=== PATIENT | male | born 1980 | race African-American/Black ===

== ENCOUNTER 2017-03-31 19:28 | Emergency (ER) | payer OTHER ==
[2017-03-31 20:10] LABS: #Basophils 0.1 thou/uL (0.0-0.2); #Eosinphils 0.1 thou/uL (0.0-0.7); #Lymphocytes 5.2 thou/uL (1.20-3.40); #Monocytes 0.7 thou/uL (0.11-0.59); %Basophils 0.6 % (0.0-1.0); %Eosinophils 0.8 % (0.0-10.0); %Lymphocytes 34.6 % (21.0-51.0); %Monocytes 4.7 % (0.0-10.0); Hematocrit 43.4 % (42.0-52.0); Mean Platelet Volume 6.7 fL (7.4-10.4); Red Blood Cell (RBC) Count 5.42 mill/uL (4.70-6.10); White Blood Cell (WBC) Count 15.2 thou/uL (4.8-10.8)
[2017-03-31] MEDS ORDERED: Ketorolac Tromethamine 30 MG/ML VIAL ONE (20:22)
--- NOTE | 2017-03-31 20:26 | RAD ---
PORTABLE AP CHEST X-RAY: 03/31/17 HISTORY: Chest pain. COMPARISON: 12/15/13 The cardiac silhouette is magnified by projection. Pulmonary vasculature is within normal limits. Th e lungs are clear. There has been no interval change when compared to the prior study. IMPRESSION: No acute cardiopulmonary process. POS: [facility]
[2017-03-31 20:27] LABS: Troponin I Less than 0.010 ng/mL (< 0.028)
[2017-03-31 20:29] LABS: ALT (SGPT) 29 U/L (8-55); AST (SGOT) 27 U/L (5-34); Alkaline Phosphatase 61 U/L (40-150); Anion Gap 16 mmol/L (10-20); BUN (Urea Nitrogen) 12 mg/dL (8.9-20.6); Bilirubin, Total 0.4 mg/dL (0.2-1.2); CK (CPK) 433 U/L (30-200); Calc. Creatinine Clearance 0 mL/min (70-130); Calcium 9.5 mg/dL (7.8-10.44); Carbon Dioxide 20 mmol/L (22-29); Chloride 107 mmol/L (98-107); Estimated GFR-MDRD Greater than 90; Globulin 3.2 g/dL (2.4-3.5); Protein, Total 7.6 g/dL (6.0-8.3)
[2017-03-31] MEDS ORDERED: Azithromycin 250 MG TAB ONE (22:50)
== END 2017-03-31 23:46 | disposition home or self-care (01) ==
LOC: ERS 19:28
DX: J40 Bronchitis, not specified as acute or chronic (principal); I10 Essential (primary) hypertension; E11.9 Type 2 diabetes mellitus without complications; Z85.841 Personal history of malignant neoplasm of brain; Z79.899 Other long term (current) drug therapy
CPT/HCPCS: 71010; 80053; 82553; 84484; 85025; 93005; 96361; 96374; J1885